=== PATIENT | female | born 1995 | race Caucasian/White ===

== ENCOUNTER 2022-01-18 10:03 | Outpatient (CLI) | payer OTHER, SELFPAY ==
[2022-01-18 11:09] LABS: Hematocrit 30.9 % (37-47); Hemoglobin 10.3 g/dL (12.0-15.0); Mean Corp Hgb Conc 33.3 g/dL (32-36); Mean Corpuscular Hgb 30.5 pg (27.0-32.0); Mean Corpuscular Volume 91.4 fL (81-99); Mean Platelet Vol. 11.2 fl (6.2-12.0); Platelet Count 157 K/mm3 (150-450); RBC Distribution Width CV 13.6 % (11.6-14.6); RBC Distribution Width SD 45.3 fl (35.1-43.9); Red Blood Count 3.38 M/mm3 (4.2-5.4); White Blood Count 7.2 K/mm3 (4.4-11.0)
[2022-01-18 11:19] LABS: Glucose Challenge Gest 1H 50g 109 mg/dL (70-140)
== END 2022-01-18 23:59 | disposition home or self-care (01) ==
PROVIDERS: Visit Provider Student in an Organized Health Care Education/Training Program
DX: Z34.83 Encounter for supervision of other normal pregnancy, third trimester (principal)
CPT/HCPCS: 36415; 82950; 85027

== ENCOUNTER 2022-01-25 09:55 | Outpatient (CLI) | payer OTHER, SELFPAY ==
--- NOTE | 2022-01-25 10:00 | ECHOD_ITS ---
Reason For Study: HX VSD REPAIR, Procedure This was a 2D Doppler, Color Flow transthoracic echocardiogram. The study was technically difficult. Exam performed in department. Left Ventricle Normal LV size. 2D echocardiographic images compatible with an echodense area in the high interventricular septal region potentially compatible with a VSD repair. Based upon the 2D echocardiographic images obtained there appears to be grossly normal left ventricular size, paradoxical septal wall motion compatible with a postoperative state, and grossly normal left ventricular systolic function. The estimated ejection fraction is 55 %. No evidence for diastolic dysfunction. Right Ventricle Normal RV size. Normal systolic function. Atria Normal left atrium. The right atrium is mildly enlarged. No doppler evidence for ASD. Mitral Valve There is no mitral annular calcification. Normal mitral valve. Trivial mitral valve insufficiency. Tricuspid Valve Normal tricuspid valve. Mild to moderate (1-2+) tricuspid valve insufficiency. Right ventricular systolic pressure estimated to be 34 mmHg. Aortic Valve Trisinus/trileaflet aortic valve. Normal aortic valve. Pulmonic Valve The pulmonic valve is not well visualized. Great Vessels Normal sized aortic root. Pericardium/Pleural No pericardial effusion. MMode/2D Measurements & Calculations LVIDd: 4.8 cm IVSd: 1.2 cm Ao root diam: 2.9 cm LVIDs: 3.3 cm LVPWd: 1.2 cm RVDd: 3.9 cm FS: 31.9 % LAV(MOD-bp): 69.7 ml LA A4 area: 18.2 cm2 RA A4 area: 24.6 cm2 LAV(MOD-bp) Indexed: 28.5 ml/m2 LAV(MOD-sp2): 87.9 ml LAV(MOD-sp4): 48.3 ml Doppler Measurements & Calculations MV E max pepito: 92.2 cm/sec Lat Peak E' Pepito: 13.2 cm/sec Med Peak E' Pepito: 9.5 cm/sec MV A max pepito: 92.2 cm/sec E/E' lat: 7.0 E/E' med: 9.7 MV E/A: 1.0 Ao V2 max: 163.4 cm/sec LV V1 max: 126.8 cm/sec PA V2 max: 101.1 cm/sec Ao max P.7 mmHg LV V1 max P.4 mmHg TR max pepito: 278.0 cm/sec TR max P.1 mmHg ECHO/Echo Complete Interpretation Summary The study was technically difficult. Based upon the 2D echocardiographic images obtained there appears to be grossly normal left ventricular size, paradoxical septal wall motion compatible with a postoperativ e state, and grossly normal left ventricular systolic function. The estimated ejection fraction is 55 %. The right atrium is mildly enlarged. Trivial mitral valve insufficiency. Mild to moderate (1-2+) tricuspid valve insufficiency. Right ventricular systolic pressure estimated to be 34 mmHg. No evidence for diastolic dysfunction. 2D echocardiographic images compatible with an echodense area in the high inter ventricular septal region potentially compatible with a VSD repair. Ordering Physician: Nadja Juárez Referring Physician: Nadja Juárez Performed By: Inocencia Sultana, EDILBERTO, RVT
[2022-01-25 15:33] LABS: Bacteria 0 SEEN /hpf (None Seen); Mucous, Urine 0 SEEN /hpf (<or=2+); Red Blood Cells-Urine 0 SEEN /hpf (0-5); Squamous Epithelial Cells - UA 0 SEEN /hpf (5-10); White Blood Cells 0 SEEN /hpf (0-5)
[2022-01-25 17:02] LABS: Hematocrit 32.5 % (37-47); Hemoglobin 10.8 g/dL (12.0-15.0); Mean Corp Hgb Conc 33.2 g/dL (32-36); Mean Corpuscular Hgb 29.9 pg (27.0-32.0); Mean Platelet Vol. 10.6 fl (6.2-12.0); Platelet Count 244 K/mm3 (150-450); RBC Distribution Width CV 13.6 % (11.6-14.6); RBC Distribution Width SD 44.3 fl (35.1-43.9); Red Blood Count 3.61 M/mm3 (4.2-5.4); White Blood Count 9.3 K/mm3 (4.4-11.0)
[2022-01-25 17:12] LABS: Color, Urine Yellow (Yellow); Glucose, Dipstick Normal (Normal); Ketone-Dipstick Negative (Negative); Leukocyte Esterase-Dipstick Negative /ul (Negative); Nitrite-Dipstick Negative (Negative); Occult Blood-Urine Negative /ul (Negative); Protein-Dipstick Negative (Negative); Urine Bilirubin Dipstick Negative (Negative); Urine Clarity Clear (Clear); Urine Urobilinogen 1 mg/dl (Normal)
[2022-01-25 17:25] LABS: Protein, Urine (Random) 6.8 mg/dL (<11.9); Protein:Creat Ratio 195 mg/g CRE (0-200)
[2022-01-25 17:53] LABS: ALB/GLOB Ratio 0.8 RATIO (0.9-2.4); AST(SGOT) 16 U/L (15-37); Alanine Aminotransfer ALT/SGPT 36 U/L (13-56); Albumin, Serum 2.8 g/dL (3.2-5.0); Alkaline Phosphatase 89 U/L (45-117); Anion Gap 5 (5-15); BUN 8 mg/dL (7-18); BUN/Creat Ratio 13.8 RATIO (10-20); Calcium,Total 8.6 mg/dL (8.5-10.1); Chloride 111 mmol/L (98-107); Creatinine, Serum 0.58 mg/dL (0.55-1.02); EST Glomerular Filtration Rate 132 mL/min (>60); Est Glom Filt Rate - Afr Amer 159 mL/min (>60); Globulin 3.5 g/dL (2.2-4.2); Glucose 111 mg/dL (74-106); LDH 156 U/L (84-246); Potassium 3.8 mmol/L (3.5-5.1); Protein, Total 6.3 g/dL (6.4-8.2); Sodium Level 139 mmol/L (136-145)
== END 2022-01-25 23:59 | disposition home or self-care (01) ==
PROVIDERS: Referring Provider Student in an Organized Health Care Education/Training Program; Visit Provider Student in an Organized Health Care Education/Training Program
DX: Z34.80 Encounter for supervision of other normal pregnancy, unspecified trimester (principal); I10 Essential (primary) hypertension; Z87.74 Personal history of (corrected) congenital malformations of heart and circulatory system
CPT/HCPCS: 36415; 80053; 81001; 82570; 83615; 84156; 85027; 93306

== ENCOUNTER 2022-01-29 20:23 | Inpatient (IN) | payer OTHER, SELFPAY ==
[2022-01-29] VITALS (51 sets, daily range): BP systolic 135–199; BP diastolic 65–97; PULSE 86–111; RESP 18–20; TEMP 35.8–37.4; O2SAT 97–99; BMI 54.9
[2022-01-29] MEDS: Lactated Ringers 1,000 ML 75 ML IV (17:30)
[2022-01-29] MEDS: Labetalol (Prefilled) 20 MG/4 ML IV (17:35)
[2022-01-29] MEDS: Magnesium Sulfate 4gm/100mL 4 GM/100 ML IV.SOLN. IV (17:43)
[2022-01-29 17:50] LABS: Hematocrit 33.7 % (37-47); Hemoglobin 11.1 g/dL (12.0-15.0); Mean Corp Hgb Conc 32.9 g/dL (32-36); Mean Corpuscular Hgb 29.8 pg (27.0-32.0); Mean Corpuscular Volume 90.6 fL (81-99); Mean Platelet Vol. 10.4 fl (6.2-12.0); Platelet Count 264 K/mm3 (150-450); RBC Distribution Width CV 13.8 % (11.6-14.6); RBC Distribution Width SD 44.6 fl (35.1-43.9); Red Blood Count 3.72 M/mm3 (4.2-5.4); White Blood Count 9.1 K/mm3 (4.4-11.0)
[2022-01-29] MEDS: Labetalol (Prefilled) 20 MG/4 ML 40 MG IV (17:53)
[2022-01-29] MEDS: Betamethasone/Betamethasone 30 MG/5 ML Vial 12 MG IM (17:58)
[2022-01-29] MEDS: Magnesium Sulfate 4gm/100mL 2 GM/50 ML IV.SOLN. IV (18:01)
[2022-01-29] MEDS: Labetalol 100 MG/20 ML Vial 80 MG IV (18:14)
[2022-01-29] MEDS: Magnesium Sulfate 20 GM/500 ML BAG IV (18:19)
[2022-01-29 18:26] LABS: Protein, Urine (Random) 7.1 mg/dL (<11.9); Protein:Creat Ratio 200 mg/g CRE (0-200)
[2022-01-29 18:30] LABS: Anion Gap 8 (5-15); BUN 9 mg/dL (7-18); BUN/Creat Ratio 13.8 RATIO (10-20); Chloride 110 mmol/L (98-107); Creatinine, Serum 0.65 mg/dL (0.55-1.02); EST Glomerular Filtration Rate 115 mL/min (>60); Est Glom Filt Rate - Afr Amer 139 mL/min (>60); Estimated Creatinine Clearance 120.63 ml/min; Glucose 140 mg/dL (74-106); LDH 190 U/L (84-246); Potassium 3.8 mmol/L (3.5-5.1); Sodium Level 140 mmol/L (136-145)
--- NOTE | 2022-01-29 19:27 | HP.PCM.OB_ITS ---
HPI - General HPI Narrative MEGAN ARREDONDO, is a 26 F who presents at 32-4/7 weeks gestational age for evaluation of high blood pressure. She has a history of chronic hypertension and is on labetalol. She had presented to her PCPs office for Tdap vaccination and blood pressure elevation was noted and [facility]. Patient denies headache, vision changes, abdominal pain, contractions, leaking of fluid, vaginal bleeding, shortness of breath. issues -Transfer of care at 29wga -BMI 47 pre-, intake 295lb -Anxiety -cHTN - intake BP 156/89 -Early 1h GTT 82 Maternal Data Information LIBERTAD Calculator Estimated Delivery Date Method Current WG Current Estimate 03/22/22 LMP (Certain) 32w 4d Other Estimates 03/21/22 Ultrasound #1 32w 5d 03/22/22 Manual 32w 4d [facility] Medical History (Updated 01/29/22 @ 19:[address] Karla Taylor MD) Chronic hypertension Obesity VSD (ventricular septal defect) Home Medications aspirin [Baby Aspirin] 81 mg PO DAILY 01/29/22 [History Last Taken 01/29/22 07:00] nifedipine [Procardia XL] 60 mg PO DAILY 01/29/22 [History Last Taken 01/29/22 07:00] prenat.vits,mendez,[id number] [ Vitamin] 2 tab PO DAILY 01/29/22 [History Last Taken 01/29/22 07:00] Allergy/AdvReac Type Severity Reaction Status Date / Time Sulfa (Sulfonamide Allergy Rash Verified 01/29/22 17:15 Antibiotics) Family History (Updated 01/29/22 @ 19:[address] Karla Taylor MD) Father Hypertension Myocardial infarction CVA (cerebral vascular accident) Anxiety Mother Hypertension Diabetes Brother Diabetes Hypertension Anxiety Surgical History (Updated 01/29/22 @ 19:[address] Karla Taylor MD) S/P patent foramen ovale closure S/P VSD repair History 1 Elective abortions Hx Para Spontaneous abortions Hx # Term Pregnancies Ectopic pregnancies Hx # Pregnancies Multiple births # of living children NST FHR Rate Baby A Baseline: 140 Variability:: Moderate Accelerations:: 15 x 15 Decelerations:: None NST Reactive:: Yes FHR Category:: Category I Uterine Activity:: 0/10 ROS ROS Narrative see hpi Vital Signs Vital Signs Vital Signs: 01/29/22 16:35 01/29/22 16:40 01/29/22 16:44 Temperature 99.3 F H Temperature Source Temporal Pulse Rate 111 H 102 H Respiratory Rate Respiratory Effort Respiratory Depth Respiratory Pattern Blood Pressure 180/97 H BP Systolic 180 BP Diastolic 97 Pulse Ox 99 Oxygen Delivery Method 01/29/22 16:55 01/29/22 17:07 01/29/22 17:19 Temperature Temperature Source Pulse Rate 106 H 100 106 H Respiratory Rate Respiratory Effort Respiratory Depth Respiratory Pattern Blood Pressure 193/93 H 199/95 H 181/95 H BP Systolic 193 199 181 BP Diastolic 93 95 95 Pulse Ox Oxygen Delivery Method 01/29/22 17:27 01/29/22 17:38 01/29/22 17:43 Temperature Temperature Source Pulse Rate 107 H 105 H Respiratory Rate 20 H Respiratory Effort Normal Respiratory Depth Normal Respiratory Pattern Normal Blood Pressure 193/95 H 181/88 H BP Systolic 193 181 BP Diastolic 95 88 Pulse Ox Oxygen Delivery Method Room Air 01/29/22 17:45 01/29/22 17:47 01/29/22 17:50 Temperature Temperature Source Pulse Rate 95 94 100 Respiratory Rate Respiratory Effort Respiratory Depth Respiratory Pattern Blood Pressure 177/90 H BP Systolic 177 BP Diastolic 90 Pulse Ox 99 99 Oxygen Delivery Method 01/29/22 17:55 01/29/22 17:59 01/29/22 18:00 Temperature Temperature Source Pulse Rate 101 H 97 98 Respiratory Rate Respiratory Effort Respiratory Depth Respiratory Pattern Blood Pressure 174/80 H BP Systolic 174 BP Diastolic 80 Pulse Ox 99 99 Oxygen Delivery Method 01/29/22 18:05 01/29/22 18:09 01/29/22 18:10 Temperature Temperature Source Pulse Rate 103 H 96 94 Respiratory Rate Respiratory Effort Respiratory Depth Respiratory Pattern Blood Pressure 175/83 H BP Systolic 175 BP Diastolic 83 Pulse Ox 99 98 Oxygen Delivery Method 01/29/22 18:15 01/29/22 18:19 01/29/22 18:20 Temperature Temperature Source Pulse Rate 95 100 98 Respiratory Rate Respiratory Effort Respiratory Depth Respiratory Pattern Blood Pressure 148/67 H BP Systolic 148 BP Diastolic 67 Pulse Ox 99 99 Oxygen Delivery Method 01/29/22 18:25 01/29/22 18:29 01/29/22 18:30 Temperature Temperature Source Pulse Rate 98 96 96 Respiratory Rate Respiratory Effort Respiratory Depth Respiratory Pattern Blood Pressure 155/78 H BP Systolic 155 BP Diastolic 78 Pulse Ox 98 99 Oxygen Delivery Method 01/29/22 18:35 01/29/22 18:39 01/29/22 18:40 Temperature Temperature Source Pulse Rate 96 88 94 Respiratory Rate Respiratory Effort Respiratory Depth Respiratory Pattern Blood Pressure 146/71 H BP Systolic 146 BP Diastolic 71 Pulse Ox 98 99 Oxygen Delivery Method 01/29/22 18:45 01/29/22 18:49 01/29/22 18:50 Temperature Temperature Source Pulse Rate 94 89 91 Respiratory Rate Respiratory Effort Respiratory Depth Respiratory Pattern Blood Pressure 136/66 H BP Systolic 136 BP Diastolic 66 Pulse Ox 99 98 Oxygen Delivery Method 01/29/22 18:55 01/29/22 18:59 01/29/22 19:00 Temperature Temperature Source Pulse Rate 92 92 95 Respiratory Rate Respiratory Effort Respiratory Depth Respiratory Pattern Blood Pressure 141/65 H BP Systolic 141 BP Diastolic 65 Pulse Ox 98 98 Oxygen Delivery Method 01/29/22 19:05 01/29/22 19:21 Temperature Temperature Source Pulse Rate 89 94 Respiratory Rate Respiratory Effort Respiratory Depth Respiratory Pattern Blood Pressure 135/78 H BP Systolic 135 BP Diastolic 78 Pulse Ox 98 Oxygen Delivery Method Weight Weight: 154.5 kg Body Mass Index (BMI) 54.9 Physical Exam Const alert, oriented x3 and no apparent distress HEENT normocephalic Resp normal respiratory effort, normal air movement and clear to auscultation bilaterally Cardio regular rate, regular rhythm, S1 normal heart sound, S2 normal heart sound and no murmurs GI normal to inspection, nondistended, normoactive bowel sounds, soft to palpation, non-tender and non-distended Inspection: gravid Extremity normal to inspection and no calf tenderness Extremity Narrative: trace b/l pedal edema Skin no rashes or lesions noted Neuro Neuro Narrative: +1 b/l LE DTRs, no clonus Psych mental status grossly normal Labs Labs Labs: Hct 33.7 % (37-47) L Hgb 11.1 g/dL (12.0-15.0) L Glucose 1 Hr 50 gm 109 mg/dL (70-140) 08/22/21 O pos, Hgb 12.9 gd:, Plt 253, HIV neg, HBsAg neg, RPR nr, Rubella immune, Hep C neg 08/29/21 OGT 82 mg/dL Assessment & Plan (1) Hypertension affecting in third trimester: PLAN: Severely elevated BPs - antihypertensive protocol Magnesium IV Preeclamptic labs - r/o preeclampsia vs. exacerbated cHTN Betamethasone status reassuring, Cat I
[2022-01-29 19:49] LABS: AST(SGOT) 14 U/L (15-37); Alanine Aminotransfer ALT/SGPT 27 U/L (13-56); Albumin, Serum 2.9 g/dL (3.2-5.0); Alkaline Phosphatase 99 U/L (45-117); Bilirubin, Direct 0.09 mg/dL (0.00-0.30); Globulin 3.8 g/dL (2.2-4.2); Protein, Total 6.7 g/dL (6.4-8.2)
[2022-01-29] MEDS: Labetalol 200 MG Tablet PO (20:01)
[2022-01-29] MEDS: Acetaminophen 500 MG Tablet 1000 MG PO (23:08)
[2022-01-30] VITALS (102 sets, daily range): BP systolic 114–204; BP diastolic 58–93; PULSE 81–108; RESP 18–19; TEMP 35.6–37.2; O2SAT 81–100
[2022-01-30] MEDS: Magnesium Sulfate 20 GM/500 ML BAG IV ×2 (03:56→15:35)
[2022-01-30] MEDS: Lactated Ringers 1,000 ML 75 ML IV (05:01)
[2022-01-30] MEDS: Labetalol 200 MG Tablet PO ×2 (06:10→12:12)
--- NOTE | 2022-01-30 08:50 | PCM.PN.OB ---
Subjective Subjective No issues overnight. Reports had headache, but mild and resolved with Tylenol. She denies vision changes, abdominal pain or contractions. Reports good movement. Objective Data Objective Data Vital Signs: Vital Signs Temp Pulse Resp BP Pulse Ox 97.9 F 90 18 135/62 H 99 01/30/22 08:10 01/30/22 08:11 01/30/22 08:10 01/30/22 08:11 01/30/22 08:10 Oxygen Delivery Method Room Air Weight: 154.5 kg Body Mass Index (BMI) 54.9 Intake & Output: Intake and Output for Last 24 Hours 01/28/22 01/29/22 01/30/22 23:59 23:59 23:59 Intake Total 1592.92 / 1592.92 1131.67 / 1131.67 Output Total 1450 / 1450 1100 / 1100 Balance 142.92 / 142.92 31.67 / 31.67 Lab / Micro Data Result Diagrams: 01/29/22 17:10 01/29/22 17:10 Labs: Laboratory Results - last 24 hr 01/29/22 17:10: WBC 9.1, RBC 3.72 L, Hgb 11.1 L, Hct 33.7 L, MCV 90.6, MCH 29.8, MCHC 32.9, RDW Std Deviation 44.6 H, RDW Coeff of Chad 13.8, Plt Count 264, MPV 10.4 01/29/22 17:10: Sodium 140, Potassium 3.8, Chloride 110 H, Carbon Dioxide 22.0, Anion Gap 8, BUN 9, Creatinine 0.65, Estim Creat Clear Calc 120.63, Est GFR (MDRD) Af Amer 139, Est GFR (MDRD) Non-Af 115, BUN/Creatinine Ratio 13.8, Glucose 140 H, Calcium 9.0, Lactate Dehydrogenase 190 01/29/22 17:10: Total Bilirubin 0.30, Direct Bilirubin 0.09, AST 14 L, ALT 27, Alkaline Phosphatase 99, Total Protein 6.7, Albumin 2.9 L, Globulin 3.8 01/29/22 17:20: U Random Total Protein 7.1, Urine Creatinine 35.50, Protein/Creatinin Ratio 200 Physical Exam Const alert, oriented x3 and no apparent distress HEENT normocephalic Resp normal respiratory effort, normal air movement and clear to auscultation bilaterally Cardio regular rate and regular rhythm GI normal to inspection, nondistended, normoactive bowel sounds, soft to palpation, non-tender and non-distended Inspection: gravid Extremity normal to inspection Extremity Narrative: +1 b/l pedal edema Neuro oriented x3 Neuro Narrative: +1 b/l LE DTRs, no clonus Assessment & Plan (1) 32 weeks gestation of : PLAN: Complete betamethasone course (2) Hypertension affecting in third trimester: PLAN: Chronic hypertension exacebration versus superimposed preeclampsia BPs stable overnight Maintain Labetalol 200mg bid, Nifedipine XL 60mg d/c Magnesium Observe BPs today Complete 24h urine protein If urine protein wnl and BPs controlled, plan for d/c home
[2022-01-30] MEDS: NIFEdipine 60 MG Tablet PO (09:56)
[2022-01-30] MEDS: Magnesium Sulfate 4gm/100mL 4 GM/100 ML IV.SOLN. IV (14:50)
[2022-01-30] MEDS: Lactated Ringers 1,000 ML 100 ML IV (14:50)
[2022-01-30] MEDS: 0.9 % NaCl (Sterile) Posiflush 10 mL IV ×2 (14:55→15:25)
[2022-01-30] MEDS: Labetalol (Prefilled) 20 MG/4 ML IV (14:55)
[2022-01-30] MEDS: Labetalol (Prefilled) 20 MG/4 ML 40 MG IV (15:13)
[2022-01-30] MEDS: Magnesium Sulfate 4gm/100mL 2 GM/50 ML IV.SOLN. IV (15:14)
[2022-01-30] MEDS: Labetalol 100 MG/20 ML Vial 80 MG IV (15:27)
[2022-01-30] MEDS: hydrALAZINE 20 MG/ML Vial 10 MG IV (15:39)
--- NOTE | 2022-01-30 17:00 | PN.OBGYN_ITS ---
Subjective Subjective Patient without complaints. Denies any PIH symptoms. No headaches. No blurry vision, no abdominal discomfort or pain. Presented last evening and blood pressures were markedly elevated. Started hypertensive protocol and magnesium sulfate. Celestone was given. Blood pressure stabilized and this a.m. her magnesium sulfate was discontinued. PIH labs all normal with 24 hour urine pending (but prt:creat level normal). Pt has been on Procardia XL 30 mg twice daily for HTN control at home. Her last dose was this AM Today blood pressures again began to be unstable with the highest blood pressure reading being 184/90. Magnesium sulfate was restarted along with restarting the hypertensive protocol. Blood pressures have been erratic ranging from 204/81 to 142/74. She received a total of 880 mg of labetalol in the past 24 hours (280mg IV/600mg po). She also received a single 10 mg dose of hydralazine IV at 13:15 today. Examination of the patient showed no evidence of PIH except for her elevated bl ood pressures. The BP cuff does not fit well. Blood pressures in the patient's forearm were checked and all normal (125/59). I discussed with Dr. Carri Mcneil at [facility] and we plan a second dose of Celestone now andl transport to [facility] for continued care. 24 hour urine now finished with results pending. Objective Data Objective Data Vital Signs: Vital Signs Temp Pulse Resp BP Pulse Ox 97.0 F L 85 18 125/59 H 99 01/30/22 16:00 01/30/22 16:50 01/30/22 16:00 01/30/22 16:50 01/30/22 16:48 Oxygen Delivery Method Room Air Weight: 340 lb 9.827 oz Body Mass Index (BMI) 54.9 Intake & Output: Intake and Output for Last 24 Hours 01/28/22 01/29/22 01/30/22 23:59 23:59 23:59 Intake Total 1592.92 / 1592.92 3060.42 / 3060.42 Output Total 1450 / 1450 1999 Balance 142.92 / 142.92 1060.42 / 1060.42 Lab / Micro Data Result Diagrams: 01/29/22 17:10 01/29/22 17:10 Labs: Laboratory Results - last 24 hr 01/29/22 17:10: WBC 9.1, RBC 3.72 L, Hgb 11.1 L, Hct 33.7 L, MCV 90.6, MCH 29.8, MCHC 32.9, RDW Std Deviation 44.6 H, RDW Coeff of Chad 13.8, Plt Count 264, MPV 10.4 01/29/22 17:10: Sodium 140, Potassium 3.8, Chloride 110 H, Carbon Dioxide 22.0, Anion Gap 8, BUN 9, Creatinine 0.65, Estim Creat Clear Calc 120.63, Est GFR (MDRD) Af Amer 139, Est GFR (MDRD) Non-Af 115, BUN/Creatinine Ratio 13.8, Glucose 140 H, Calcium 9.0, Lactate Dehydrogenase 190 01/29/22 17:10: Total Bilirubin 0.30, Direct Bilirubin 0.09, AST 14 L, ALT 27, Alkaline Phosphatase 99, Total Protein 6.7, Albumin 2.9 L, Globulin 3.8 01/29/22 17:20: U Random Total Protein 7.1, Urine Creatinine 35.50, Protein/Creatinin Ratio 200
[2022-01-30 17:34] LABS: 24 Hour Urine Protein 228.8 mg/24HR (<150 MG/24HR); 24HR. UA Prot. Total Volume 3575 mL; Urine Protein (24 Hour) 6.4 mg/dL (<11.9)
--- NOTE | 2022-01-30 17:36 | PCM.HP.BLA ---
History and Physical Date of Admission: 01/30/22 ACOG ANTEPARTUM RECORD - HISTORY AND PHYSICAL (01/30/2022) Name: MEGAN Dubois History of this : This is a 26 year old who presents at 32 wks + 5 days gestation to L and D with elevated BP. OB Physician: Nadja Meadows O 's Physician: UNDECIDED ...................................................................... : 1995 Age: 26 Address: [address] [place] [address] Phone: (H) [phone] (O) [phone] Insurance Carrier: [employer] [id number] Emergency Contact: KEVIN TO/ [phone] ...................................................................... Final LIBERTAD: 03/22/22 By Ultrasound: PARITY: (G-Total Pregnancies P-Fullterm,Premature,Induced AB,Spont AB, Ectopics, Multiple,Living) LIBERTAD CONFIRMATION: By LMP: 06/15/21 Final LIBERTAD: 03/22/22 OB PROBLEM LIST: EPDS score 11. Enc office Childbirth and classes. Transfer at 29 weeks. TN--on Procardia XL 30 mg BID at home Class III obesity VSD with repair in 1993. no residual issues. Order echo ALLERGIES: Sulfa (Sulfonamide Antibiotics) Generalized rash MEDICATIONS: Aspirin Childrens 81 mg chewable tablet One pill by mouth once a day Gummies 400 mcg-35 mg-25 mg-5 mg chewable tablet Two pills by mouth once a day Procardia XL 60 mg tablet,extended release One pill by mouth once a day SOCIAL HISTORY: Smoking - Never Alcohol Use - occasionally not while Diet - balanced Diet and One cup coffee daily. 1-[address] Pepper or Mt Dew. Water 2-3 Liters. Lifestyle - recent relocation Exercise - Enc to walk 20-30 min most days. Employer - [employer] Job Description - assembly line Illicit Drug Use - denies use of street drugs Sexual Activity - Residence - lives with Place of - [place] Hours Worked - 30 wk Spouse-Sig Other Name - Kevin To Spouse-Sig Other Occupation - [employer] Spouse-Sig Other Phone No - [phone] PRIOR DELIVERY HISTORY DEL DATE GEST LAB WT LB WT OZ TYPE ANES LABOR TX ANTEPARTUM FLOW CHART VISIT GE RTC FU F F AR U U DATE WK MD WKS HT PN HR M SS BP ED WT AR GL D EF ST __ ____ ___ __ __ ___ __ __ __ ___ __ __ __ ___ __ 01 Apr 32 CM 2 34 + + 140/88 sl 333 ne ne 25 Dec 31 CM 2 + + 136/72 1+ 336 - - 15 Mar 29 CM 2 29 + + 116/80 1+ 328 tr - ANTEPARTUM NOTE(S): Jan 25 2022: Started IRON, did not feel well with Iron Jan 18 2022: occ. HURT's Jan 08 2022: NOB visit today COMPREHENSIVE ANTEPARTUM NOTE(S): Jan 25 2022: 32/0w. Class III obesity. cHTN - procardia 30 mg. Weekly labs. 2x weekly BPP. ECHO 01/25. Reports HURT, tension type, since Friday on and off. States she has hx of headaches with season change, feels similar. No visual disturbances, RUQ pain, emesis. Exam wnl, CN 2-12 grossly intact, patellar reflexes 1/4 bilaterally, no clonus. Labs done. Preacutions of when to call/go to L reviewed. HURT unrelent Jan 18 2022: Megan is here for a pnv w/ SO at 31/0. Good FM. sl to 1+ edema in ankles, 2+ edema in hands. BP taken after laying down for 15 mins on L side, 136/72. Pt states she was very nervous for her 1 hr GTT today. Occasional HURT's, pt believes this is d/t decreased caffeine intake. No concerns expressed. at this time. Jan 18 2022: 31/0w. Class III obesity, early 1hr wnl. cHTN on 30 mg procardia. Growth today AGA, BPP /8. Plan for growth US q4w and 2x weekly testing. Hx of VSD repeaired in 1993 - s/p cardio consult. Per pt EKG wnl. Records pending. Ordered ECHO, scheduled January 25 (first available). Plan for induction 37-39/6w. Routine PNC: glucola done today. F/u 2x weekly testing, /Fri, PNV on Fridays. CM Jan 08 2022: Megan is here for a pnv at 29/4. Good FM. Sl edema present in ankles, non-pitting. No questions or concerns expressed at this time. NOB visit today. Jan 08 2022: NOB NURSE VISIT- Megan is a 26 y o G 1 P 0 with LIBERTAD 03-22-22 planning a vag del at [facility] probably w epidural, undecided about ped care post disch and she plans to breastfeed. She is a transfer at 29.6 weeks. 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 Her husb, Kevin is w her today and works for the [employer]. The pg was unplanned but they are happy. Megan has an allerg Jan 08 2022: 26 yo at 29/4w, LIBERTAD 03/22/22 by LMP c/w 10w US, transfer of care. Class III obesity, early 1hr wnl. cHTN on 30 mg procardia. Did not take today, initial BP elevated. Pt will take and repeat BP check 2h after dosing. Plan for growth US q4w and 2x weekly testing. Growth next week. Hx of VSD repeaired in 1993 - s/p cardio consult. Per pt EKG wnl. Will get records. Ordered ECHO, scheduled January 25 REVIEW OF SYSTEMS: GENERAL - Denies fever, or chills SKIN - Denies rash, new skin lesions, or change in moles EYES - Denies blurred vision, or change in visual acuity EARS - Denies ear pain, or difficulty hearing NOSE - Denies nasal congestion, discharge, or bleeding MOUTH - Denies sore throat, or difficulty swallowing NECK - Denies pain or swelling RESPIRATORY - Denies shortness of breath, cough, wheezing CARDIOVASCULAR - Denies palpitations, chest pain, orthopnea, PND, peripheral edema, syncope or claudication GASTROINTESTINAL - Denies nausea, vomiting, diarrhea, constipation, Denies abdominal pain, melena and or bright red blood GENITOURINARY - Denies dysuria, frequency of urination, urgency, or hesitancy MUSCULOSKELETAL - Denies joint or muscle pain, or back pain NEUROLOGICAL - Denies localized numbness, weakness, or tingling PSYCHIATRIC - Denies depression, anxiety, substance abuse or suicide attempts ENDOCRINE - Denies heat or cold intolerance, weight loss or gain, increasing thirst HEMATO-IMMUNOLOGIC - Denies easy bruising, bleeding, oral ulcerations or recurrent infections GENETICS SCREENING: Age 35+ years: No Thalassemia: No Neural Tube Defect: No Down Syndrome: No KWAME-SACHS: No Sickle Cell Disease: No Hemophilia: No Musc. Dystrophy: No Cystic Fibrosis: No-declines screening [place] Chorea: No Mental Retardation: No Fragile X: No Other genetic: Yes Other defects: Yes SABs/still births: No Drugs since LMP: Yes Comments: cleft lip, palate, Heart hole. INFECTION HISTORY: High risk AIDS: No High risk Hepatitis: No Exposed to TB: No Exposed to Herpes: No Rash/viral illness since LMP: No History of STD: No MENSTRUAL HISTORY: *Menses Amount/Duration: 5-6 DAYSMenses Regularity: RegularFrequency: monthlyMenarche (Age Onset): 10* PAST SUMMARY: PARITY: 1. Total Pregnancies............ 1 2. Full Term Pregnancies........ 0 3. Premature.................... 0 4. Abortions - Induced.......... 0 5. Abortions - Spontaneous...... 0 6. Ectopics..................... 0 7. Multiple Births.............. 0 8. Living Children.............. 0 PHYSICAL EXAMINATION General Appearence: 26 yo female in no acute distress Vital Signs: AF, VSS Heart: RRR without rubs or gallops Lungs: CTA x 2 Breasts: deferred Abdomen: gravid Pelvis: Cervix: Presentation: cephalic Station: Fetus: Size: AGA Movement: present Heart: present LAB TEST(S) ORDERED SINCE:06/25/21 01/18/2022 GLUCOSE CHALLENGE GEST 1H 50G 01/18/2022 CBC-COMPLETE BLOOD CNT NO DIFF 01/07/2022 Protime/INR 01/07/2022 Other 01/07/2022 Initial OB Labs 01/07/2022 GC-Chlamydia 01/07/2022 CBC w/Diff 01/07/2022 Blood Chemistry == ==== Order Observation Description Value Ref_Range A* Site == ==== GLUCOSE CHALLEN NOTE MORALES GLUCOSE CHALLEN GLU GEST 50G 1H 109 mg/dL 70-140 ML CBC-COMPLETE BL NOTE MORALES CBC-COMPLETE BL WBC 7.2 K/mm3 4.4-11.0 ML CBC-COMPLETE BL RBC 3.38 M/mm3 4.2-5.4 L ML CBC-COMPLETE BL HGB 10.3 g/dL 12.0-15.0 L ML CBC-COMPLETE BL HCT 30.9 37-47 L ML CBC-COMPLETE BL MCV 91.4 fL 81-99 ML CBC-COMPLETE BL MCH 30.5 pg 27.0-32.0 ML CBC-COMPLETE BL MCHC 33.3 g/dL 32-36 ML CBC-COMPLETE BL RDW CV 13.6 11.6-14.6 ML CBC-COMPLETE BL RDW SD 45.3 fl 35.1-43.9 H ML CBC-COMPLETE BL PLT 157 K/mm3 150-450 ML CBC-COMPLETE BL MPV 11.2 fl 6.2-12.0 ML Blood Chemistry ALT (SGPT) 21 u/l 0-48 Blood Chemistry AST (SGOT) 14 u/l 0-42 Blood Chemistry BUN 11 mg/dl 7-25 Blood Chemistry BUN/Creatinine Ratio 22.4 (Calc) 6-25 high Blood Chemistry Chloride 106 meq/l 95-108 Blood Chemistry Creatinine .49 mg/dl 0.5-1.4 Blood Chemistry Potassium 4.2 meq/l 3.5-5.3 Blood Chemistry Sodium 139 meq/l 135-146 Blood Chemistry Uric Acid 3.3 Protime/INR Prothrombin Time 12.8 Seconds 9.0-11.5 Protime/INR INR 1.0 Seconds 2.0-5.0 GC-Chlamydia Chlamydia negative Negative GC-Chlamydia GC negative No Growth Initial OB Labs Blood Type O Initial OB Labs Rh Type + Initial OB Labs Antibody Screen neg Negative Initial OB Labs Hemoglobin Initial OB 12.9 Initial OB Labs Hematocrit Initial OB 39.5 Initial OB Labs PLT 253 Initial OB Labs Rubella immune Immune Initial OB Labs VDRL non reactive Non Reactive Initial OB Labs HBsAg negative Negative Initial OB Labs HIV Test negative Negative Initial OB Labs Urine Protein negative Negative Initial OB Labs Urine Glucose negative Negative Other Unusual lab HEP C negative CBC w/Diff White Blood Cell Count 7.49 thous/mcl 3.8-10.8 CBC w/Diff Hemoglobin 12.9 g/dl 12.0-15.6 CBC w/Diff Hematocrit 39.5 % 35.0-46.0 CBC w/Diff Platelet Count 253 thous/mcl 150-450 == ==== Impression /Plan: 32 wks + 5 days intrauterine . See L and D progress notes for additional information.
[2022-01-30] MEDS: Betamethasone/Betamethasone 30 MG/5 ML Vial 12 MG IM (18:32)
== END 2022-01-30 19:39 | disposition other institution (70) | DRG 833 ==
LOC: WPOUT 01-30 15:00 → WP 01-30 15:00
PROVIDERS: Admitting Provider Obstetrics & Gynecology; Visit Provider Obstetrics & Gynecology
DX: O10.013 Pre-existing essential hypertension complicating pregnancy, third trimester (principal); F41.9 Anxiety disorder, unspecified; Z3A.32 32 weeks gestation of pregnancy; O99.343 Other mental disorders complicating pregnancy, third trimester; Z79.82 Long term (current) use of aspirin
CPT/HCPCS: 36415; 59025; 59050; 80048; 80076; 81050; 82570; 83615; 84156; 85027; 96372; 99218; J7120; G0378; J0702